=== PATIENT | female | born 1940 | race African-American/Black ===

== ENCOUNTER 2018-05-30 14:02 | Outpatient (CLI) | payer MEDICARE, BC | END 2018-05-30 14:03 | disposition home or self-care (01) | LOC: BICMAMMO 14:02 | PROVIDERS: ATTEND Family Medicine | DX: Z12.31 Encounter for screening mammogram for malignant neoplasm of breast (principal) | CPT/HCPCS: 77063; 77067 ==

== ENCOUNTER 2018-11-26 09:12 | Outpatient (CLI) | payer MEDICARE, BC ==
[2018-11-26] MEDS ORDERED: ISOVUE-370 76%-LOCM 1 ML ONE (11:58)
--- NOTE | 2018-11-26 12:03 | CT ---
CT OF THE CHEST AND ABDOMEN AND PELVIS WITH IV CONTRAST: INDICATION: History of weight loss. COMPARISON: None. CONTRAST: 70 cc Isovue 370. FINDINGS: CHEST: There is a 4 mm pulmonary nodule within the right upper lobe. No additional suspicious pulmonary nod ule is evident. There is subsegmental volume loss within both lung bases. There coronary artery tho racic aortic calcifications. No enlarged lymph nodes are present. There is a tiny subcentimeter hyp odensity within the thyroid isthmus and left thyroid lobe. There are mild mitral annular calcificati ons. ABDOMEN AND PELVIS: There is a 2.2 cm hypodense lesion within the caudate lobe that is incompletely characterized. No ad ditional focal hepatic lesion is evident. Adrenal glands, pancreas, and the spleen appear within nor mal limits. No focal renal lesion is evident involving the right kidney. There is a 1.6 cm cyst inv olving the medial aspect of the lower pole left kidney. No hydronephrosis is evident. The gallbladder is surgically absent. There are moderate calcifications involving the abdominal wall vasculature. There are scattered colonic diverticula. Bladder, rectum, and perirectal soft tissues appear within normal limits. The small bowel has a normal caliber. No suspicious osteolytic or osteoblastic lesio n is evident. There is diffuse osteopenia. There is scattered degenerative and osteoarthritic coronel e. IMPRESSION: 1. Hypodense mass involving the caudate lobe is incompletely characterized. A followup CT or MR of the abdomen utilizing a hepatic mass protocol is recommended. 2. Left renal cyst. 3. A 4 mm right upper lobe pulmonary nodule. 4. Colonic diverticulosis. 5. Cholecystectomy. 6. Other chronic findings as above. CODE T POS: [facility]
== END 2018-11-26 09:13 | disposition home or self-care (01) ==
LOC: BICCT 09:12
PROVIDERS: ATTEND Family Medicine
DX: R63.4 Abnormal weight loss (principal); N28.1 Cyst of kidney, acquired; R91.1 Solitary pulmonary nodule; K57.30 Diverticulosis of large intestine without perforation or abscess without bleeding; G95.89 Other specified diseases of spinal cord; Z90.49 Acquired absence of other specified parts of digestive tract; M85.80 Other specified disorders of bone density and structure, unspecified site; M19.90 Unspecified osteoarthritis, unspecified site
CPT/HCPCS: 71260; 74177

== ENCOUNTER 2019-01-09 12:53 | Outpatient (CLI) | payer MEDICARE, BC ==
[~2019-01-09 12:53] MED LIST: Gadobenate Dimeglumine 529 MG/1 ML (20ML VIAL) ONE
--- NOTE | 2019-01-09 16:56 | MRI ---
MRI ABDOMEN WITH AND WITHOUT CONTRAST: HISTORY: Liver mass. COMPARISON: CT chest, abdomen, and pelvis from 11/26/2018. FINDINGS: Corresponding to the abnormalities seen on the CT examination, there is a marked T2 hyperintense mass at the caudate lobe, anterior to the IVC, with peripheral interval enhancement. There is isointensi ty on the 10 minute delayed phase of contrast, indicating hemangioma. No other abnormal enhancing ma ss of the liver is appreciated. The spleen is unremarkable, as well as the pancreas. Aortic contour is nonaneurysmal. The celiac trunk and superior mesenteric arteries are patent. There is a cyst, inferior pole, left kidney, without enhancement. No hydronephrosis. Prior cholecystectomy. Small right axillary lymph nodes. No proximal small bowel dilatation. The adrenal glands are unremarkable. IMPRESSION: The mass in question in the liver has imaging characteristics of a benign hemangioma. No followup re quired. POS: [facility]
== END 2019-01-09 12:54 | disposition home or self-care (01) ==
LOC: SCSMRI 12:53
PROVIDERS: ATTEND Family Medicine
DX: K76.9 Liver disease, unspecified (principal)
CPT/HCPCS: 74183

== ENCOUNTER 2019-03-07 20:33 | Emergency (ER) | payer MEDICARE, BC ==
[2019-03-07] MEDS ORDERED: Acetaminophen 325 MG TAB ONE (21:13)
--- NOTE | 2019-03-07 21:49 | CT ---
EXAM: CT scan cervical spineWithout contrast: HISTORY: Right shoulder pain and aching in neck no trauma COMPARISON: None FINDINGS: No evidence for acute fracture or facet dislocation. Mild focal kyphosis at the mid cervical spine level. No prevertebral soft tissue swelling. Multilevel disc osteophytosis and facet arthrosis most marked at C4-C5, C5-C6 and C6-C7 with variable severity, mostly mild to moderate canal and lateral recess stenosis and moderate to severe multilevel bilateral foraminal stenosis, with left unilateral foraminal stenosis at C2-C3. IMPRESSION: No acute fracture or facet dislocation. 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 Given potential radiculopathy, nonemergent follow-up MRI would be helpful in further assessing this.
== END 2019-03-07 22:38 | disposition home or self-care (01) ==
LOC: ERS 20:33
DX: M54.12 Radiculopathy, cervical region (principal); I10 Essential (primary) hypertension; E78.00 Pure hypercholesterolemia, unspecified; Z79.82 Long term (current) use of aspirin; Z79.899 Other long term (current) drug therapy
CPT/HCPCS: 72125

== ENCOUNTER 2019-06-04 10:14 | Outpatient (CLI) | payer MEDICARE, BC ==
--- NOTE | 2019-06-04 12:57 | MMO ---
Bilateral MAMMO Bilat Screen [facility]. CLINICAL HISTORY: Patient is 78 years old and is seen for screening. The patient has no family history of breast cancer. The patient has no personal history of cancer. VIEWS: The views performed were: bilateral craniocaudal with tomosynthesis; bilateral mediolateral oblique with tomosynthesis; and left mediolateral oblique. FILMS COMPARED: The present examination has been compared to prior imaging studies performed at [facility] on 08/12/2011, 05/13/2013, 07/16/2014 and 05/30/2018. MAMMOGRAM FINDINGS: There are scattered fibroglandular densities. There are stable benign appearing calcifications seen in both breasts. There are no suspicious masses, suspicious calcifications, or new areas of architectural distortion. IMPRESSION: THERE IS NO MAMMOGRAPHIC EVIDENCE OF MALIGNANCY. A ROUTINE FOLLOW-UP MAMMOGRAM IN 1 YEAR IS RECOMMENDED. THE RESULTS OF THIS EXAM WERE SENT TO THE PATIENT. ACR BI-RADS Category 2 - Benign finding MAMMOGRAPHY NOTE: 1. A negative mammogram report should not delay a biopsy if a dominant of clinically suspicious mass is present. 2. Approximately 10% to 15% of breast cancers are not detected by mammography. 3. Adenosis and dense breasts may obscure an underlying neoplasm. Reported by: MARY BETH LOPEZ MD Electonically Signed: [id number]
== END 2019-06-04 10:15 | disposition home or self-care (01) ==
LOC: BICMAMMO 10:14
PROVIDERS: ATTEND Family Medicine
DX: Z12.31 Encounter for screening mammogram for malignant neoplasm of breast (principal)
CPT/HCPCS: 77063; 77067

== ENCOUNTER 2019-11-29 09:47 | Outpatient (CLI) | payer MEDICARE, BC ==
--- NOTE | 2019-11-29 11:53 | CT ---
CHEST CT WITH CONTRAST: COMPARISON: 11/26/2018. HISTORY: Past medical history of weight loss. Right upper lobe nodule. FINDINGS: There is a slightly heterogeneous thyroid gland with subcentimeter hypodensity in the left thyroid lo be measuring 0.7 cm. A second larger hypodensity measures 1.1 cm. No evidence of lymphadenopathy in the visualized lower neck and axilla. There is no mediastinal mass, lymphadenopathy, or hematoma. Stable upper normal right paratracheal/p recarinal lymph node. Heart size is upper normal without significant pericardial fluid. Scattered c oronary artery calcifications. The visualized aorta has an overall normal caliber. No periaortic fa t stranding. The visualized upper solid abdominal viscera is unremarkable. There are no lytic or blastic lesions within the osseous structures. Trachea and central bronchi are patent. Dependent atelectatic changes in the lung parenchyma. No pl eural effusion or pneumothorax. Right Lung: Redemonstration of a stable 3 mm solid parenchymal nodule. No new nodules are noted in the right lung. Left Lung: No suspicious masses or consolidation. No nodules. IMPRESSION: Essentially stable solid nodule in the right upper lobe measuring 3 mm. Given the size of the lesion and greater than 1-year stability, additional followup imaging is not recommended. POS: [facility]
[2019-11-29] MEDS ORDERED: Iopamidol-370 76% 500 ML 1 ML ONE (15:23)
== END 2019-11-29 09:48 | disposition home or self-care (01) ==
LOC: BICCT 09:47
PROVIDERS: ATTEND Family Medicine
DX: R91.1 Solitary pulmonary nodule (principal)
CPT/HCPCS: 71260

== ENCOUNTER 2020-06-05 10:04 | Outpatient (CLI) | payer MEDICARE, BC ==
--- NOTE | 2020-06-05 10:47 | MMO ---
Bilateral MAMMO Bilat Screen [facility]. CLINICAL HISTORY: Patient is 79 years old and is seen for screening. The patient has no family history of breast cancer. The patient has no personal history of cancer. VIEWS: The views performed were: bilateral craniocaudal with tomosynthesis and bilateral mediolateral oblique with tomosynthesis. FILMS COMPARED: The present examination has been compared to prior imaging studies performed at [facility] on 05/13/2013, 07/16/2014, 05/30/2018 and 06/04/2019. This study has been interpreted with the assistance of computer-aided detection. MAMMOGRAM FINDINGS: There are scattered fibroglandular densities. There are stable benign appearing calcifications seen in both breasts. There are also vascular calcifications. There are no suspicious masses, suspicious calcifications, or new areas of architectural distortion. IMPRESSION: THERE IS NO MAMMOGRAPHIC EVIDENCE OF MALIGNANCY. A ROUTINE FOLLOW-UP MAMMOGRAM IN 1 YEAR IS RECOMMENDED. THE RESULTS OF THIS EXAM WERE SENT TO THE PATIENT. ACR BI-RADS Category 2 - Benign finding MAMMOGRAPHY NOTE: 1. A negative mammogram report should not delay a biopsy if a dominant of clinically suspicious mass is present. 2. Approximately 10% to 15% of breast cancers are not detected by mammography. 3. Adenosis and dense breasts may obscure an underlying neoplasm. Reported by: NAVNEET HORNER MD Electonically Signed: [id number]
--- NOTE | 2020-06-05 11:04 | BD ---
EXAM: Bone densitometry using DEXA HISTORY: 79 yo female. Screening for postmenopausal osteoporosis FINDINGS: L1--bone mineral density 1.163 g/sq cm; T score 1.6 ; Z score 3.4 L2--bone mineral density 1.194 g/sq cm; T score 1.5 ; Z score 3.6 L3--bone mineral density 1.247 g/sq cm; T score 1.5 ; Z score 3.6 L4--bone mineral density 1.364 g/sq cm; T score 2.8 ; Z score 5.0 Total L1-L4--bone mineral density 1.244 g/sq cm; T score 1.8 ; Z score 3.9 Left femoral neck--bone mineral density0.632; T score -2.0 ; Z score -0.4 Total proximal left femur--bone mineral density 0.773; T score -1.4 ; Z score 0.0 The 10 year fracture risk for a major osteoporotic fracture is 9% and for a hip fracture is 2.8%. IMPRESSION: Osteopenia
== END 2020-06-05 10:05 | disposition home or self-care (01) ==
LOC: BICMAMMO 10:04
PROVIDERS: ATTEND Family Medicine
DX: Z12.31 Encounter for screening mammogram for malignant neoplasm of breast (principal); Z13.820 Encounter for screening for osteoporosis; E28.39 Other primary ovarian failure; M85.852 Other specified disorders of bone density and structure, left thigh; Z78.0 Asymptomatic menopausal state
CPT/HCPCS: 77063; 77067; 77080

== ENCOUNTER 2021-06-09 10:53 | Outpatient (CLI) | payer MEDICARE | END 2021-06-09 10:54 | disposition home or self-care (01) | LOC: BICMAMMO 10:53 | PROVIDERS: ATTEND Family Medicine | DX: Z12.31 Encounter for screening mammogram for malignant neoplasm of breast (principal); Z80.3 Family history of malignant neoplasm of breast | CPT/HCPCS: 77063; 77067 ==

== ENCOUNTER 2022-03-16 11:34 | Outpatient (CLI) | payer MEDICARE | END 2022-03-16 11:35 | disposition home or self-care (01) | LOC: SCSRAD 11:34 | PROVIDERS: ATTEND Nurse Practitioner Family | DX: S00.83XA Contusion of other part of head, initial encounter (principal); S69.92XA Unspecified injury of left wrist, hand and finger(s), initial encounter; M19.042 Primary osteoarthritis, left hand | CPT/HCPCS: 70150 ==

== ENCOUNTER 2022-06-13 12:49 | Outpatient (CLI) | payer MEDICARE | END 2022-06-13 12:50 | disposition home or self-care (01) | LOC: BICMAMMO 12:49 | PROVIDERS: ATTEND Family Medicine | DX: Z12.31 Encounter for screening mammogram for malignant neoplasm of breast (principal); Z80.3 Family history of malignant neoplasm of breast | CPT/HCPCS: 77063; 77067 ==

== ENCOUNTER 2023-07-12 10:43 | Outpatient (CLI) | payer MEDICARE | END 2023-07-12 10:44 | disposition home or self-care (01) | LOC: BICMAMMO 10:43 | PROVIDERS: ATTEND Family Medicine | DX: Z12.31 Encounter for screening mammogram for malignant neoplasm of breast (principal); Z80.3 Family history of malignant neoplasm of breast | CPT/HCPCS: 77063; 77067 ==

== ENCOUNTER 2024-04-10 14:22 | Outpatient (CLI) | payer MEDICARE ==
[2024-04-10 15:57] LABS: Hematocrit 33.9 % (34.9-44.5); Hemoglobin 10.6 g/dL (12.0-15.5); Mean Corpuscular HGB CONC 31.3 g/dL (32.0-36.0); Mean Corpuscular Hemoglobin 31.5 pg (27.0-33.0); Mean Corpuscular Volume 100.9 fl (81.6-98.3); Mean Platelet Volume 11.3 fl (7.4-10.4); Platelet Count 273 10x3/uL (150-450); RBC Distribution Width 13.4 % (11.5-14.5); Red Blood Cell (RBC) Count 3.36 10x6/uL (3.90-5.03); White Blood Cell (WBC) Count 5.3 10x3/uL (3.5-10.5)
[2024-04-10 16:07] LABS: Anion Gap 13 mmol/L (10-20); BUN (Urea Nitrogen) 15 mg/dL (9.8-20.1); Calc. Creatinine Clearance 0 mL/min (70-130); Calcium 9.4 mg/dL (7.8-10.44); Carbon Dioxide 25 mmol/L (23-31); Chloride 107 mmol/L (98-107); Estimated GFR 65; Glucose 82 mg/dL (83-110); Potassium 4.1 mmol/L (3.5-5.1); Sodium 141 mmol/L (136-145)
[2024-04-10 16:16] LABS: PTT 27.8 sec (22.0-33.0); Prothrombin Time 10.5 sec (9.5-12.1)
== END 2024-04-10 14:23 | disposition home or self-care (01) ==
LOC: LABBT 14:22
PROVIDERS: ATTEND Thoracic Surgery (Cardiothoracic Vascular Surgery)
DX: Z01.818 Encounter for other preprocedural examination (principal); I65.23 Occlusion and stenosis of bilateral carotid arteries
CPT/HCPCS: 80048; 85027; 85610; 85730; 93005; 93010

== ENCOUNTER 2024-04-10 14:30 | Inpatient (IN) | payer MEDICARE ==
[2024-04-12] MEDS ORDERED: Bupivacaine PF 0.5% 30 ML VIAL ONE (06:16)
[2024-04-12] MEDS ORDERED: EPINEPHrine 1 MG/ML VIAL ONE (06:16)
[2024-04-12] MEDS ORDERED: Heparin 5,000 UNITS/ML VIAL ONE (06:16)
[2024-04-12] MEDS ORDERED: Lidocaine 1% MPF 2 ML VIAL ONE (07:06)
[2024-04-12] MEDS ORDERED: Sodium Chloride 0.9% 100 ML ONE (07:20)
[2024-04-12] MEDS ORDERED: CEFAZOLIN 2 GM VIAL ONE (07:20)
[2024-04-12] MEDS ORDERED: PROPOFOL 20 ML ONE ×2 (07:31→07:59)
[2024-04-12] MEDS ORDERED: fentaNYL PF 100 MCG/2 ML SYRINGE ONE (07:31)
[2024-04-12] MEDS ORDERED: Albuterol HFA (OR) 200 PUFF INH ONE (07:57)
[2024-04-12] MEDS ORDERED: ePHEDrine Sulfate 50 MG/10 ML VIAL ONE (08:03)
[2024-04-12] MEDS ORDERED: Lidocaine 1% PF 5 ML VIAL ONE (08:31)
[2024-04-12] MEDS ORDERED: Rocuronium Bromide 10 MG/ML (10ML VIAL) ONE (08:31)
[2024-04-12] MEDS ORDERED: Protamine Sulfate 50 MG/5 ML VIAL ONE (08:34)
[2024-04-12] MEDS ORDERED: Heparin 10,000 UNITS/ 10 ML VIAL ONE (08:34)
[2024-04-12] MEDS ORDERED: SUGAMMADEX SODIUM 200 MG/2 ML VIAL ONE (08:42)
[2024-04-12] MEDS ORDERED: Ondansetron PF 4 MG/2 ML Vial IVP PRN (10:57)
[2024-04-12] MEDS ORDERED: fentaNYL 50 mcg/mL 1 mL Vial SLOW IVP PRN (10:57)
[2024-04-12] MEDS ORDERED: Phenylephrine 40 MG/NS 250 ML 40 MG in Premix 1 BAG IVPB PRN (10:57)
[2024-04-12] MEDS ORDERED: Ipratropium/Albuterol 3 ML NEB NEB PRN (10:57)
[2024-04-12] MEDS ORDERED: Nitroglycerin 50 MG/250 ML BOT 250 ML IVPB PRN (10:57)
[2024-04-12] MEDS ORDERED: hydrALAZINE 20 MG/ML VIAL SLOW IVP PRN (10:57)
[2024-04-12] MEDS ORDERED: traMADol HCl 50 MG TAB PO PRN (10:57)
[2024-04-12] MEDS ORDERED: Acetaminophen 325 MG TAB PO PRN (10:57)
[2024-04-12] MEDS: Sodium Chloride 0.9% 1,000 ML IV SCH (11:35)
[2024-04-12] MEDS: Amlodipine 5 MG TAB PO SCH ×2 (13:00)
[2024-04-12] MEDS: Isosorbide Mononitrate 30 MG ER.TAB PO SCH (13:00)
[2024-04-12 13:03] VITALS: BMI 27.7
[2024-04-12 13:06] VITALS: BP 134/65
[2024-04-12] MEDS: CEFAZOLIN 2 GM in Sodium Chloride 0.9% 100 ML IVPB SCH (15:00)
[2024-04-12] MEDS: Ipratropium/Albuterol 3 ML NEB NEB SCH (15:05)
[2024-04-12] MEDS: Atorvastatin Calcium 40 MG TAB PO SCH (20:24)
[2024-04-13] MEDS: Isosorbide Mononitrate 30 MG ER.TAB PO SCH (08:26)
[2024-04-13] MEDS: Aspirin 81 mg Enteric Coated Tablet PO SCH (08:27)
[2024-04-13] MEDS: Clopidogrel Bisulfate 75 MG TAB PO SCH (08:27)
[2024-04-13] MEDS ORDERED: Hydrochlorothiazide 25 MG TAB PO PRN (08:47)
[2024-04-13 18:05] VITALS: TEMP 98.3
== END 2024-04-13 18:41 | disposition home or self-care (01) | DRG 36 ==
LOC: SURG A 04-12 06:04 → CCU 04-12 11:49
PROVIDERS: ADMIT Thoracic Surgery (Cardiothoracic Vascular Surgery); ATTEND Thoracic Surgery (Cardiothoracic Vascular Surgery)
PROC: 037K3DZ Dilation of Right Internal Carotid Artery with Intraluminal Device, Percutaneous Approach (ICD-10-PCS; principal; 2024-04-12)
PROC: B54CZZA Ultrasonography of Left Lower Extremity Veins, Guidance (ICD-10-PCS; 2024-04-12)
PROC: 3E033XZ Introduction of Vasopressor into Peripheral Vein, Percutaneous Approach (ICD-10-PCS; 2024-04-12)
DX: I65.21 Occlusion and stenosis of right carotid artery (principal); Z79.899 Other long term (current) drug therapy; Z79.82 Long term (current) use of aspirin; I10 Essential (primary) hypertension; E78.00 Pure hypercholesterolemia, unspecified; Z90.49 Acquired absence of other specified parts of digestive tract; Z90.710 Acquired absence of both cervix and uterus; Z98.41 Cataract extraction status, right eye; Z98.42 Cataract extraction status, left eye
CPT/HCPCS: 94640; C1769; C1876; C1884; J0171; J0665; J1642; J1644; J2704; J2720; J3490; J7050; J7620

== ENCOUNTER 2024-05-17 13:20 | Inpatient (IN) | payer MEDICARE ==
[2024-05-24] MEDS ORDERED: EPINEPHrine 1 MG/ML VIAL ONE (10:06)
[2024-05-24] MEDS ORDERED: Heparin 5,000 UNITS/ML VIAL ONE (10:06)
[2024-05-24] MEDS ORDERED: Bupivacaine PF 0.5% 30 ML VIAL ONE (10:07)
[2024-05-24] MEDS ORDERED: CEFAZOLIN 2 GM VIAL ONE (10:27)
[2024-05-24] MEDS ORDERED: Sodium Chloride 0.9% 100 ML ONE (10:27)
[2024-05-24] MEDS ORDERED: PROPOFOL 20 ML ONE (10:45)
[2024-05-24] MEDS ORDERED: fentaNYL PF 100 MCG/2 ML SYRINGE ONE (10:45)
[2024-05-24] MEDS ORDERED: Rocuronium Bromide 10 MG/ML (10ML VIAL) ONE (10:53)
[2024-05-24] MEDS ORDERED: Glycopyrrolate 0.2 MG/ML 5 ML SYRINGE ONE (10:59)
[2024-05-24] MEDS ORDERED: Labetalol HCl 100 MG/20 ML VIAL ONE (10:59)
[2024-05-24] MEDS ORDERED: PHENYLEPHRINE-NS 100 MCG/ML 10 ML SYRINGE ONE (11:01)
[2024-05-24] MEDS ORDERED: ePHEDrine Sulfate 50 MG/10 ML VIAL ONE (11:08)
[2024-05-24] MEDS ORDERED: Heparin 10,000 UNITS/ 10 ML VIAL ONE (11:13)
[2024-05-24] MEDS ORDERED: SUGAMMADEX SODIUM 200 MG/2 ML VIAL ONE (11:38)
[2024-05-24] MEDS ORDERED: Ondansetron PF 4 MG/2 ML Vial ONE (11:38)
[2024-05-24] MEDS ORDERED: Protamine Sulfate 50 MG/5 ML VIAL ONE (11:40)
[2024-05-24] MEDS ORDERED: Ondansetron HCl/PF 4 MG/2 ML Vial IVP PRN (12:14)
[2024-05-24] MEDS ORDERED: Promethazine HCl 25 MG/ML VIAL IM PRN (12:14)
[2024-05-24] MEDS ORDERED: Calcium Chloride 1 GM/10 ML Abboject SYRINGE ONE (12:26)
[2024-05-24] MEDS ORDERED: Albumin 5% 500 ML ONE (12:36)
[2024-05-24] MEDS ORDERED: hydrALAZINE 20 MG/ML VIAL SLOW IVP PRN (12:46)
[2024-05-24] MEDS ORDERED: traMADol HCl 50 MG TAB PO PRN (12:46)
[2024-05-24] MEDS ORDERED: fentaNYL 50 mcg/mL 1 mL Vial SLOW IVP PRN (12:46)
[2024-05-24] MEDS ORDERED: Acetaminophen 325 MG TAB PO PRN (12:46)
[2024-05-24] MEDS ORDERED: Ondansetron PF 4 MG/2 ML Vial IVP PRN (12:46)
[2024-05-24] MEDS ORDERED: Ipratropium/Albuterol 3 ML NEB NEB PRN (12:46)
[2024-05-24] MEDS ORDERED: Nitroglycerin 50 MG/250 ML BOT 250 ML IVPB PRN (12:46)
[2024-05-24] MEDS ORDERED: Phenylephrine 40 MG/NS 250 ML 40 MG in Premix 1 BAG IVPB PRN (14:01)
[2024-05-24] MEDS: Sodium Chloride 0.9% 1,000 ML IV SCH (14:08)
[2024-05-24] MEDS: Ipratropium/Albuterol 3 ML NEB NEB SCH (15:01)
[2024-05-24] MEDS: CEFAZOLIN 2 GM in Sodium Chloride 0.9% 100 ML IVPB SCH (17:38)
[2024-05-25 03:30] VITALS: TEMP 98.2
[2024-05-25 06:30] VITALS: BMI 28.2
[2024-05-25] MEDS: Clopidogrel Bisulfate 75 MG TAB PO SCH (08:08)
[2024-05-25] MEDS: Amlodipine 5 MG TAB PO SCH (08:08)
[2024-05-25] MEDS: Aspirin 81 mg Enteric Coated Tablet PO SCH (08:08)
[2024-05-25] MEDS: Atorvastatin Calcium 40 MG TAB PO SCH (08:09)
[2024-05-25] MEDS: Isosorbide Mononitrate 30 MG ER.TAB PO SCH (08:09)
[2024-05-25 08:10] VITALS: BP 123/59
[2024-05-25] MEDS ORDERED: CEFAZOLIN 2 GM in Sodium Chloride 0.9% 100 ML IVPB SCH (11:00)
== END 2024-05-25 08:45 | disposition home or self-care (01) | DRG 36 ==
LOC: SURG A 05-24 09:41 → CCU 05-24 13:35
PROVIDERS: ADMIT Thoracic Surgery (Cardiothoracic Vascular Surgery); ATTEND Thoracic Surgery (Cardiothoracic Vascular Surgery)
PROC: 037L3DZ Dilation of Left Internal Carotid Artery with Intraluminal Device, Percutaneous Approach (ICD-10-PCS; principal; 2024-05-24)
PROC: 3E033XZ Introduction of Vasopressor into Peripheral Vein, Percutaneous Approach (ICD-10-PCS; 2024-05-24)
PROC: 30233J1 Transfusion of Nonautologous Serum Albumin into Peripheral Vein, Percutaneous Approach (ICD-10-PCS; 2024-05-24)
DX: I65.22 Occlusion and stenosis of left carotid artery (principal); I10 Essential (primary) hypertension; M19.90 Unspecified osteoarthritis, unspecified site; E78.5 Hyperlipidemia, unspecified; Z79.82 Long term (current) use of aspirin; Z79.899 Other long term (current) drug therapy; Z90.49 Acquired absence of other specified parts of digestive tract; Z90.710 Acquired absence of both cervix and uterus; Z88.8 Allergy status to other drugs, medicaments and biological substances
CPT/HCPCS: C1725; C1769; C1876; C1884; J0171; J0665; J1642; J1644; J2405; J2704; J2720; J3490; J7050; J7620; P9045